=== PATIENT | male | born 1960 | race Caucasian/White ===

== ENCOUNTER 2017-08-23 12:27 | Emergency (ER) | payer MEDICAID ==
[~2017-08-23] VITALS: Ht 175.3 cm; Wt 81.6 kg
[2017-08-23] MEDS ORDERED: LORazepam Inj 2mg/ml 1ml IV ONE (12:45)
[2017-08-23 13:19] VITALS: BP 148/129
[2017-08-23 13:20] LABS: EOSINOPHILS % (AUTO) 4.1 % (0.0-3.0); HEMATOCRIT 43.2 % (42.0-52.0); HEMOGLOBIN 14.7 G/DL (14.2-18.0); LYMPHOCYTES % (AUTO) 25.3 % (20.0-45.0); MEAN CORPUSCULAR VOLUME 90 FL (80-99); MONOCYTES % (AUTO) 5.6 % (1.0-10.0); PLATELET COUNT 203 K/UL (150-450); WHITE BLOOD COUNT 8.4 K/UL (4.8-10.8)
[2017-08-23] MEDS ORDERED: LITHIUM CARBON300 MG ORAL (13:23)
[2017-08-23] MEDS ORDERED: QUETIAPINE FUMA25 MG ORAL (13:23)
[2017-08-23 13:46] LABS: ANION GAP 9 mmol/L (5-15); BLOOD UREA NITROGEN 11 mg/dL (7-18); CALCIUM 8.9 MG/DL (8.5-10.1); CARBON DIOXIDE 25 MMOL/L (21-32); CHLORIDE 106 MMOL/L (98-107); CREATININE 1.2 MG/DL (0.55-1.30); POTASSIUM 3.7 MMOL/L (3.5-5.1); SODIUM 140 MMOL/L (136-145)
[2017-08-23 13:47] LABS: APPEARANCE,URINE CLEAR; BILIRUBIN, URINE NEGATIVE (NEGATIVE); COLOR,URINE PALE YELLOW; GLUCOSE, URINE (UA) NEGATIVE (NEGATIVE); KETONES,URINE NEGATIVE (NEGATIVE); LEUKOCYTE ESTERASE ,URINE NEGATIVE (NEGATIVE); NITRITE,URINE NEGATIVE (NEGATIVE); PH,URINE 6 (4.5-8.0); PROTEIN,URINE NEGATIVE (NEGATIVE); UROBILINOGEN,URINE NORMAL MG/DL (0.0-1.0)
[2017-08-23] MEDS ORDERED: dilTIAZem HCl 25mg/5ml Inj IVP ONE (14:00)
[2017-08-23 14:01] LABS: ALANINE AMINOTRANSFERASE 35 U/L (12-78); ALBUMIN 3.4 G/DL (3.4-5.0); ALBUMIN/GLOBULIN RATIO 1.1 (1.0-2.7); ALKALINE PHOSPHATASE 76 U/L (46-116); ASPARTATE AMINO TRANSFERASE 19 U/L (15-37); BILIRUBIN,TOTAL 0.1 MG/DL (0.2-1.0); CKMB 3.2 NG/ML (0.0-3.6); CREATINE KINASE 98 U/L (26-308)
[2017-08-23] MEDS ORDERED: Bacitracin Oint UD TOPIC ONE (14:45)
[2017-08-23] MEDS ORDERED: Aspirin Baby 81mg ORAL ONE (15:15)
--- NOTE | 2017-08-23 15:52 | Emergency Room Report ---
History of Present Illness General Chief Complaint: General Complaint Source: EMS Present Illness HPI Patient is a 56-year-old male presented after increased chest discomfort. Patient intermittent symptoms. Patient recently been seen at [facility]. Patient was noted to have prior history of psychiatric disease. He stated onset of pain was after he had used cocaine. Patient denies prior cardiac history. He reports taking lithium.Patient states that he smokes intermittently Allergies: Coded Allergies: No Known Allergies (Unverified , 08/23/17) Patient History Past Medical History: see triage record Reviewed Nursing Documentation: PMH: Agreed, PSxH: Agreed Nursing Documentation-PMH Hx Hypertension: Yes History Of Psychiatric Problem: Yes - DRUG ABUSE Review of Systems All Other Systems: negative except mentioned in HPI Physical Exam Vital Signs Date Time Temp Pulse Resp B/P (MAP) Pulse Ox O2 Delivery O2 Flow Rate FiO2 08/23/17 12:28 98.8 70 20 178/108 99 Room Air Sp02 EP Interpretation: reviewed, normal General Appearance: normal inspection, well appearing, no apparent distress, alert, non-toxic Head: atraumatic ENT: normal ENT inspection, hearing grossly normal, normal voice Neck: normal inspection, full range of motion, supple, no bony tend Respiratory: normal inspection, lungs clear, normal breath sounds, no respiratory distress, no retraction, no wheezing Cardiovascular #1: regular rate, rhythm, no edema Gastrointestinal: normal inspection, normal bowel sounds, non tender, soft, no guarding, no hernia Genitourinary: no CVA tenderness Musculoskeletal: normal inspection, back normal, normal range of motion Neurologic: normal inspection, alert, responsive, speech normal Psychiatric: normal inspection, judgement/insight normal, mood/affect normal Skin: normal inspection, normal color, no rash Medical Decision Making Diagnostic Impression: Primary Impression: ACS (acute coronary syndrome) Additional Impression: Substance abuse ER Course Patient presented for chest pain. Differential diagnosis included but was not limited to acute coronary syndrome, pulmonary embolism, pneumonia, aortic dissection, shingles, pneumothorax, aortic dissection, esophageal rupture, Because of complexity of patient's case laboratory testing and imaging studies were ordered. EKG interpreted by me showed normal sinus rhythm with a rate of 73 there is no to be some inferior] and lateral T-wave inversion. The patient was given aspirin as well as IV Ativan. CT chest read by radiologist showed evidence of aortic dissection or pulmonary embolism. Patient was discussed with Dr. Gresham who agreed to accept patient to [facility] for higher level of care. Labs Test 08/23/17 12:57 08/23/17 13:00 White Blood Count 8.4 K/UL (4.8-10.8) Red Blood Count 4.80 M/UL (4.70-6.10) Hemoglobin 14.7 G/DL (14.2-18.0) Hematocrit 43.2 % (42.0-52.0) Mean Corpuscular Volume 90 FL (80-99) Mean Corpuscular Hemoglobin 30.6 PG (27.0-31.0) Mean Corpuscular Hemoglobin Concent 33.9 G/DL (32.0-36.0) Red Cell Distribution Width 12.0 % (11.6-14.8) Platelet Count 203 K/UL (150-450) Mean Platelet Volume 7.4 FL (6.5-10.1) Neutrophils (%) (Auto) 64.0 % (45.0-75.0) Lymphocytes (%) (Auto) 25.3 % (20.0-45.0) Monocytes (%) (Auto) 5.6 % (1.0-10.0) Eosinophils (%) (Auto) 4.1 % (0.0-3.0) Basophils (%) (Auto) 1.0 % (0.0-2.0) Sodium Level 140 MMOL/L (136-145) Potassium Level 3.7 MMOL/L (3.5-5.1) Chloride Level 106 MMOL/L (98-107) Carbon Dioxide Level 25 MMOL/L (21-32) Anion Gap 9 mmol/L (5-15) Blood Urea Nitrogen 11 mg/dL (7-18) Creatinine 1.2 MG/DL (0.55-1.30) Estimat Glomerular Filtration Rate > 60 mL/min (>60) Glucose Level 117 MG/DL (74-106) Calcium Level 8.9 MG/DL (8.5-10.1) Total Bilirubin 0.1 MG/DL (0.2-1.0) Aspartate Amino Transf (AST/SGOT) 19 U/L (15-37) Alanine Aminotransferase (ALT/SGPT) 35 U/L (12-78) Alkaline Phosphatase 76 U/L (46-116) Total Creatine Kinase 98 U/L (26-308) Creatine Kinase MB 3.2 NG/ML (0.0-3.6) Creatine Kinase MB Relative Index 3.2 Troponin I 0.407 ng/mL (0.000-0.056) Pro-B-Type Natriuretic Peptide 453 pg/mL (0-125) Total Protein 6.6 G/DL (6.4-8.2) Albumin 3.4 G/DL (3.4-5.0) Globulin 3.2 g/dL Albumin/Globulin Ratio 1.1 (1.0-2.7) Lipase 782 U/L (73-393) Urine Color Pale yellow Urine Appearance Clear Urine pH 6 (4.5-8.0) Urine Specific [place] 1.010 (1.005-1.035) Urine Protein Negative (NEGATIVE) Urine Glucose (UA) Negative (NEGATIVE) Urine Ketones Negative (NEGATIVE) Urine Occult Blood Negative (NEGATIVE) Urine Nitrite Negative (NEGATIVE) Urine Bilirubin Negative (NEGATIVE) Urine Urobilinogen Normal MG/DL (0.0-1.0) Urine Leukocyte Esterase Negative (NEGATIVE) Rhythm Strip Diag. Results EP Interpretation: yes Rhythm: NSR, no PVC's, no ectopy Last Vital Signs Date Time Temp Pulse Resp B/P (MAP) Pulse Ox O2 Delivery O2 Flow Rate FiO2 08/23/17 14:01 74 151/98 08/23/17 13:19 20 96 Room Air 08/23/17 12:28 98.8 Status: unchanged Disposition: ADMITTED INPATIENT Condition: Serious Referrals: [facility],REFERRING (PCP) Jacob Hernandez Aug 23, 2017 15:52
[2017-08-23 16:00] VITALS: BP 140/85
[2017-08-23 16:16] VITALS: BP 140/85
--- NOTE | 2017-08-24 12:35 | Diagnostic Imaging Report ---
Indication: Chest pain. Rule out aortic dissection. Technique: CT angiogram of the chest, abdomen and pelvis utilizing automated exposure control with intravenous contrast after administration of intravenous contrast. Arterial phase scanning performed. Maximum intensity projections created. Volumetric 3-D reconstructions created on a stand-alone workstation. CT dose: Total DLP 1169 mGycm; CTDI vol 0.2, 8.1, 8.1, 32.5, 16.7 mGy Comparison: None Findings: Vasculature: Thoracic and abdominal aorta are normal in caliber. There is no evidence of aneurysm or dissection. Mild atherosclerotic disease is noted in the abdominal aorta, most pronounced in the infrarenal abdominal aorta. Conventional branching anatomy of the great vessels is noted. Visualized portions of the bilateral subclavian, carotid and vertebral arteries are patent and normal in caliber. Celiac artery, superior mesenteric and inferior mesenteric arteries are patent. Bilateral renal arteries are patent. There is a small accessory renal artery to the left upper pole arising directly off the aorta. Iliac arteries are patent and normal in caliber. Common femoral and visualized portions of the profunda and superficial femoral arteries are patent and normal in caliber. CT chest: Thyroid is unremarkable in appearance. There is no pathologically enlarged hilar or mediastinal adenopathy. There are minimal coronary arterial calcifications. Heart size is within normal limits. No pericardial effusion seen. Main pulmonary artery is normal in size. No cysts large saddle pulmonary embolism. More peripheral branches are not well evaluated given timing of contrast administration. There is no focal airspace consolidation, pleural effusion or pneumothorax. Mild dependent atelectasis noted in the posterior lower lobes. CT abdomen/pelvis: 2 subcentimeter enhancing foci in the dome of the liver (series 7 image 148 and 152). Punctate calcification noted within the left hepatic lobe. Gallbladder, adrenal glands and pancreas grossly unremarkable. There are subcentimeter low-attenuation foci in the spleen which may represent cysts or hemangiomas. No urinary tract stones or hydronephrosis bilaterally. Kidneys enhance symmetrically. Bladder and prostate are unremarkable. No free intraperitoneal air. Appendix is normal. No evidence of bowel obstruction or focal bowel wall thickening appreciated however evaluation limited without the use of oral contrast. There is mild sigmoid diverticulosis without evidence to suggest an acute diverticulitis. No acute osseous abnormality is seen. There are mild degenerative changes of the spine. IMPRESSION: No evidence of aortic aneurysm or dissection. No definite saddle pulmonary embolus. More peripheral branches of the pulmonary arteries are not well evaluated. Diverticulosis without evidence of acute diverticulitis. 2 indeterminate subcentimeter enhancing foci in the dome the liver as above. Imaging follow-up recommended. Low-attenuation lesions in the spleen, possibly cysts or hemangiomas. This corresponds with the statrad preliminary report. The CT scanner at [facility] is accredited by the [employer] [place] and the scans are performed using protocols designed to limit radiation exposure to as low as reasonably achievable to attain images of sufficient resolution adequate for diagnostic evaluation.
--- NOTE | 2017-09-07 16:34 | Cardiology Report ---
APPROVED REPORT EKG Measurement Heart [id number] Normal sinus rhythm Incomplete right bundle branch block Inferior infarct, age undetermined Cannot rule out Anterior infarct, age undetermined Abnormal ECG
== END 2017-08-23 16:17 | disposition short-term general hospital (02) ==
LOC: EDBD 12:27 → EMR 12:30
DX: I24.9 Acute ischemic heart disease, unspecified (principal); I10 Essential (primary) hypertension; F19.10 Other psychoactive substance abuse, uncomplicated
CPT/HCPCS: 36415; 71275; 74174; 80053; 81003; 82550; 82553; 83690; 83880; 84484; 85025; 87081; 93005; 96374; 96375; 99285; Q9967